=== PATIENT | male | born 1990 | race Asian ===

== ENCOUNTER 2018-08-24 19:09 | Emergency (ER) | payer OTHER ==
[2018-08-24 19:13] VITALS: Ht 177.8 cm
[2018-08-24 20:56] VITALS: BP 135/79
== END 2018-08-24 20:56 | disposition home or self-care (01) ==
LOC: ED 19:09
DX: S61.032A Puncture wound without foreign body of left thumb without damage to nail, initial encounter (principal); W46.0XXA Contact with hypodermic needle, initial encounter; Y93.89 Activity, other specified; Y92.89 Other specified places as the place of occurrence of the external cause; Y99.8 Other external cause status